=== PATIENT | male | born 1970 | race Caucasian/White ===

== ENCOUNTER 2021-05-10 11:45 | Emergency (ER) | payer OTHER ==
[2021-05-10 11:57] VITALS: BP 155/65
[2021-05-10] MEDS ORDERED: MELOXICAM15 MG PO (12:20)
== END 2021-05-10 13:50 | disposition home or self-care (01) ==
LOC: ED 11:45
DX: K59.00 Constipation, unspecified (principal); F17.200 Nicotine dependence, unspecified, uncomplicated